=== PATIENT | female | born 1950 | race Caucasian/White ===

== ENCOUNTER 2025-04-24 08:57 | Outpatient (OUT) | payer MEDICARE, SELFPAY ==
--- OUTSIDE RECORDS SUMMARY | 2025-04-18 14:30 | XMS_ITS | Encounter Summary ---
Author Organization [facility] Address [address] [place] [address] Care Team Providers Care Belt Dresser Name Role Phone Bennie Oden MD Primary Care Provider [phone] Mateo Rendon DO Unavailable [phone] Reason for Visit * Rehabilitation - Outpatient (Routine) - Authorized Specialty Diagnoses / Procedures Referred By Contac t Referred To Contact Physical Therapy Diagnoses Dorsalgia, unspecified Low back pain, unspecified Scoliosis, unspecified Procedures IA MANUAL THERAPY TQS REGIONS EACH 15 MINUTES Bennie Oden MD [address] [place] [address] [place] [address] Phone: tel: fax: Bennie Dc, PT [address] [place] [address] Phone: tel: fax: Referral ID Status Reason Start Date Expiration Date Visits Requested Visits Authorized [id number] Authorized Consult and Treat 04/01/2025 05/13/2025 6 6 Encounter Details Date Type Department Care Team (Late st Contact Info) Description 04/18/2025 2:30 PM EDT Treatment [facility] [address] [place] [address] Bennie Dc, PT [address] [place] [address] Lumbar paraspinal muscle spasm (Primary Dx); Lumbar radiculopathy; Scoliosis of thoracolumbar spine, unspecified scoliosis type Social History Tobacco Use Types Packs/Day Years Used Date Smoking Tobacco: Never Smokeless Tobacco: Never Comments Unknown Sex and Gender Information Value Date Recorded Sex Assigned at Not on file Legal Sex Female 7:07 PM EDT Gender Identity Not on file Sexual Orientation Not on file documented as of this encounter Progress Notes * Bennie Dc, PT - 04/18/2025 2:30 PM EDT Images from the original note were not included. Physical Therapy Physical Therapy Treatment Visit Patient Name: Roseann Cadena Today's Date: 04/18/25 Encounter Diagnoses Name Primary? Lumbar paraspinal muscle spasm Yes Lumbar radiculopathy Scoliosis of thoracolumbar spine, unspecified scoliosis type Time In: 2:30 pm Time out: 3:30 pm Supervised Time: 40 Min Total Time: 60 Min Visit Number: 2 (1/6 visits approved 04/01/2025 thru 05/13/2025 Auth # [id number] ) Chief Complaint: Frequent and progressive exacerbations of thoracolumbar pain with intermittent episodes of bilateral LE radiculopathy with underlying thoracolumbar scoliosis and lumbar DDD/DJD/Stenosis Precautions: As tolerated Subjective History: 74 yo female presents per referral of PCP Bennie Oden MD for evaluation and treatment of lumbar radiculopathy, paraspinal spasm, and scoliosis. Reports long history of intermittent lumbar pain that is becoming more difficult to independently manage. Multiple prior episodes of PT that are generally intermittent rather than sustained episodes that have assisted patient to maintain goodindependent management of this condition over the last 1-2 years. Intermittent utilization of procedural pain management in the past to assist with management. Patient is highly compliant with home exercises daily which has greatly assisted in management of this condition. Patient voices that she would like to utilize PT PRN for management of exacerbations that cannot be controlled with HEP. Reports 2-weeks of increased back pain including thoracolumbar spasm, intermittent radiculopathy with underlying thoracolumbar scoliosis leads to this PT consult (03/31/25-DBO) Pain: Reports pain was significantly improved for 7-10 days post last session and that symptoms arenow exacerbated at mid to lower cervical spine and upper trap distribution up to 5-6/10 leading to today's PT consult Objective: Examination performed on 03/31/25-DBO The patient presents with subacute lumbar pain with spasm and bilateral LE radiculopathy affecting both lower legs described as intermittent burning worse during extended static standing and walking.Static standing/walking tolerance is 10-15 minutes prior to onset and progression of pain that requires sitting or laying to improve. Patient remains diligent with daily home exercises but is not getting the relief of pain she has leading to this PT referral. Patient's LE assessment demonstrates mild hip/lumbar spine flexion with gait. Lumbar flexion 65 degrees, lumbar extension 15 degrees, side-bending 25 degrees. Hip extension was 10 degrees. 90/90 HS length test demonstrated moderate trunk and LE flexibility deficit at -25 degrees from full knee extension indicative of moderate trunk and LE flexibility deficit. There was moderate increased paraspinal tone through the thoracolumbar and lumbosacral spine. Positive PA testing with reproduction of familiar lumbar spine pain. Negative SLUMP/SLR examination with normal dermatome and myotome testing. The patient had increased pain with extended static standing and walking with minimal pain with sitting and lying consistent with lumbar stenosis condition. Demonstrates mild to moderate prominence on the right with forward bend test from T10 to L4. The patient's Back Index scored 48 indicative of moderate functional impairment consistent with PT examination findings (03/31/25-DBO) Therapy Diagnosis: The patient's primary functional limitation is associated with changing and maintaining body position with regard to the lumbar spine with moderate impairment via Back Index consistent with PT examination findings Functional Limitations: Moderate LBP, spasm, and lumbar LE radiculopathy. Moderate decreased tolerance to ADL, household management, work, sleep, and recreation Prior Level of Function ADLs: Independent Recreation: Active Employment: Retired INTERVENTIONS Manual: Grade I/II cervical and lumbar PA, mobilization, Sidelying grade II gapping mobilization, STM for improvement of tissue tone and pain (20 Min) Therapeutic Exercise: Per Exercise Grid found in patient documents including lumbar flexion-based flexibility, core strength, ergonomic, and postural program to assist varnish melter helper management (10 Minutes including cueing for optimal exercise) Therapeutic Activity: Exercises to improve dynamic activities, functional tasks, functional mobility to return to prior activity level (PRN) Neuromuscular Re-education: Neuromuscular reeducation including muscle facilitation, ergonomic and postural training, core strengthening (10-Including supine and side-lying MET 10 second hold and relax program 3-5 repetitions in standard lumbar spinal distribution) Modalities: Electrical Stimulation/Ice prone over 2-3 pillows post session IFC High/Low Sweep for inflammation and pain control (20 Min); UltraSound-1 MHz 1.5 w/cm2 at L4-S1 disc interspaces (PRN); Mechanical lumbar traction for decompression (PRN) Goals: Short Term Goals: To be met by 07/02/25 The patient to demonstrate 50% reduction in pain/radiculopathy in 6 weeks and 75% reduction in painin 12 weeks The patient to achieve 90/90 HS length testing of <15 degrees from full knee extension as demonstration of improvement in trunk and LE flexibility with core and LE strength improvements to 4+/5 in8-12 weeks The patient to score <20% residual functional impairment via Back Index f/u difficulty questionnaire in 8-12 weeks The patient to demonstrate good compliance to ergonomic and postural recommendations and have prophylactic management plan in place including routine home management via flexibility and strength exercises to reduce risk of future exacerbations to be met by conclusion of PT expected in 8-12 weeks Rehab Potential: Good PT Assessment: The patient has participated in 2 outpatient PT sessions since start of care on 03/31/25 for lumbarparaspinal spasm, lumbar radiculopathy, and thoracolumbar scoliosis per referral of Bennie Oden DO. Reports pain was significantly improved for 7-10 days post last session and that symptoms are now exacerbated at mid to lower cervical spine and upper trap distribution up to 5-6/10 leading to today's PT consult Patient previously utilized over the counter oral medication, prescription medication, had consult with primary care provider, pain management specialists including participation in procedural pain management, and has met with certified surgical technologist that indicated that surgery for lumbar spine is not indicated at this time. Physical therapy has in the past and continues to be medically appropriate and necessary to manage this patient's underlying degenerative spinal changes and rotator cuff pathology. The patient is highly compliant with all PT and home management recommendations and often only requires PT intermittently to manage exacerbations. Previous PT episodes have been denied stating that treatment was not deemed medically necessary or indicated that the patient could utilize other means to manage pain exacerbations such as massage therapy, etc... Outpatient PT to manage exacerbations of this patient's thoracolumbar and scoliosis conditions are a medically appropriate and necessary treatment approach. In summary, Physical Therapy, is medically necessary and reasonable to treat Geri Cadena's thoracolumbar spine and scoliosis conditions and I ask that [facility] cover an extended episode of PT including 8 visits over 12 weeks to best manage this patient's physical therapy needs. Plan: Recommend outpatient PT 8 visits over 12 weeks per above PT POC pending patient progress and medical necessity standards (03/31/25-DBO) I hereby deem this POC medically necessary. Please sign below and fax back to the number below. Physician Signature: Date: documented in this encounter Plan of Treatment Upcoming Encounters Date Type Department Care Team (Late st Contact Info) Description 05/01/2025 11:45 AM EDT Treatment [facility] [address] [facility] [address] Bennie Dc, PT [address] [facility] [place] [address] 07/22/2025 10:15 AM EST Office Visit [facility] [address] [place] [address] Elaine Ernandez DO [address] [place] [address] 01/06/2026 3:50 PM EDT Office Visit [facility] [address] [place] [address] Ronda Juarez MD [address] [place] [address] documented as of this encounter Visit Diagnoses Diagnosis Lumbar paraspinal muscle spasm- Primary Other symptoms referable to back Lumbar radiculopathy Thoracic or lumbosacral neuritis or radiculitis, unspecified Scoliosis of thoracolumbar spine, unspecified scoliosis type documented in this encounter Care Teams Belt Dresser Relationship Specialty Start Date End Date Bennie Oden MD PCP - General Family Medicine 02/21/23 Mateo Rendon DO [address] [place] [address] Otolaryngology 07/31/24 documented as of this encounter
--- NOTE | 2025-04-24 | XR_ITS ---
[facility] [place] [id number] Patient Name: CHANDLER FRANK MRN: [id number] date: 1950 Sex: F Assigned Patient Location: [facility] Current Patient Location: [facility] Accession/Order Number: [id number] Exam Date: 04/24/2025 09:26 Report Date: 04/24/2025 09:28 At the request of: DENNIS SCHULTZ DO Procedure: XR shoulder RT min 2V RIGHT SHOULDER - 3 views CLINICAL HISTORY: M25.511 right shoulder pain radiating down the arm for the past 3 weeks after golfing COMPARISON: None AP, Y, axillary and Grashey views were obtained. There is no evidence of fracture or dislocation. There is minimal spurring at the acromioclavicular joint and sclerosis of greater tuberosity. There are no significant soft tissue abnormalities. XR/XR shoulder RT min 2V IMPRESSION: NO ACUTE BONY FINDINGS. Impression dictated by: Mulu No M.D. 04/24/2025 9:28 AM Dictation Location: [facility] Electronically authenticated by: [id number] Y Date: 04/24/2025 09:28
--- OUTSIDE RECORDS SUMMARY | 2025-04-24 09:00 | XMS_ITS | Encounter Summary ---
Author Organization [facility] Address [address] [place] [address] Care Team Providers Care Cellars Supervisor Name Role Phone Bennie Oden MD Primary Care Provider [phone] Mateo Rendon DO Unavailable [phone] Encounter Details Date Type Department Care Team (Latest Contact Info) Description 04/18/2025 Travel Social History Tobacco Use Types Packs/Day Years Used Date Smoking Tobacco: Never Smokeless Tobacco: Never Comments Unknown Sex and Gender Information Value Date Recorded Sex Assigned at Not on file Legal Sex Female 7:07 PM EDT Gender Identity Not on file Sexual Orientation Not on file documented as of this encounter Plan of Treatment Upcoming Encounters Date Type Department Care Team (Late st Contact Info) Description 05/01/2025 11:45 AM EDT Treatment [facility] [address] [place] [address] Bennie Dc, PT [address] [place] [address] 07/22/2025 10:15 AM EST Office Visit [facility] [address] [place] [address] Elaine Ernandez DO [address] [place] [address] 01/06/2026 3:50 PM EDT Office Visit [facility] [address] [place] [address] Ronda Juarez MD [address] [place] [address] documented as of this encounter Visit Diagnoses Not on filedocumented in this encounter Care Teams Cellars Supervisor Relationship Specialty Start Date End Date Bennie Oden MD PCP - General Family Medicine 02/21/23 Mateo Rendon DO [address] [place] [address] Otolaryngology 07/31/24 documented as of this encounter
--- OUTSIDE RECORDS SUMMARY | 2025-04-24 09:00 | XMS_ITS | Encounter Summary ---
Author Organization [facility] Address [address] [place] [address] Phone Care Team Providers Care Cns Name Role Phone Bennie Oden DO Primary Care Provider [phone] Encounter Details Date Type Department Care Team (Late st Contact Info) Description 04/12/2021 Orders Only [facility] [address] [place] [address] Conversion, Onbase Social History Tobacco Use Types Packs/Day Years Used Date Smoking Tobacco: Never Assessed Comments Unknown Sex and Gender Information Value Date Recorded Sex Assigned at Not on file Legal Sex Female 11:13 PM EST Gender Identity Not on file Sexual Orientation Not on file documented as of this encounter Plan of Treatment Scheduled Orders Name Type Priority Associated Diagnoses Orde r Schedule OUTSIDE LAB SCAN Lab Ordered: 04/12/2021 documented as of this encounter Visit Diagnoses Not on filedocumented in this encounter Care Teams Cns Relationship Specialty Start Date End Date Bennie Oden DO PCP - General 09/18/20 documented as of this encounter
--- OUTSIDE RECORDS SUMMARY | 2025-04-24 09:00 | XMS_ITS | Clinical Summary ---
Author Organization [facility] Address [address] [place] [address] Care Team Providers Care Management Retail Intern Name Role Phone Bennie Oden MD Primary Care Provider [phone] Mateo Rendon DO Unavailable [phone] Allergies Active Allergy Reactions Criticality Noted Date Comments Amoxicillin 12/13/2023 Other Reaction(s): Itching, itchy Ciprofloxacin 01/02/2024 Oxaprozin 01/02/2024 Medications thyroid ([place]) 15 MG tablet Take 15 mg by mouth Daily Active MISC NATURAL PRODUCTS IJ Inject as directed Buderer Active Cyanocobalamin 1000 MCG capsule .COMPLEX 12/13/2023 Active meclizine (Antivert) 12.5 MG tablet Three times daily 12/13/2023 Active clotrimazole (Mycelex) 10 MG michelle 05/01/2024 Active Echinacea 125 MG tablet Daily 06/17/2024 Active fluticasone (Flonase) 50 MCG/ACT nasal spray Daily 12/13/2023 Active Estrogens Conjugated (Premarin) 0.625 MG/GM cream Vaginal through buderer drugs Active Dentifrices (BIOTENE DRY MOUTH DT) Apply to teeth Active NATTOKINASE PO Take by mouth A ctive Active Problems Problem Noted Date Diagnosed Date Cervical paraspinal muscle spasm 02/21/2023 Radiculopathy, cervical 02/21/2023 Resolved Problems Problem Noted Date Diagnosed Date Resolved Date Atrophic vaginitis 07/29/2024 Elevated blood pressure reading 07/29/2024 07/29/2024 Fibrocystic breast changes 07/29/2024 1 09/28/2023 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 07/29/20 24 Hoarseness of voice 07/29/2024 07/29/20 24 Hyperglycemia 07/29/2024 07/29/2024 Hyperlipidemia 07/29/2024 07/29/2024 Macrocytosis 07/29/2024 07/29/2024 Palpitations 07/29/2024 07/29/2024 Premature atrial contractions 07/29/2024 07/29/2024 Screening for colorectal cancer 07/29/2024 07/29/2024 Other specified abnormal fin dings of blood chemistry 07/29/2024 07/29/2024 Status post hysterectomy 07/29/202407/2024 Tension headache 07/29/2024 07/29/2024 Trigger finger 07/29/2024 07/29/2024 Weight loss 07/29/2024 07/29/2024 Thrush 07/29/2024 07/29/2024 Abdominal pain 08/26/2008 07/29/2024 Encounters Date Type Department Care Team Description 04/18/2025 2:30 PM EDT Treatment [facility] [address] [place] [address] Bennie Dc, PT Lumbar paraspinal muscle spasm (Primary Dx); Lumbar radiculopathy; Scoliosis of thoracolumbar spine, unspecified scoliosis type 04/18/2025 Bamboo flowsheet [facility] [address] [facility] [place] [address] Bennie Dc, PT 04/18/2025 Travel 03/31/2025 11:00 AM EDT Treatment [facility] [address] [place] [address] Bennie Dc, PT Lumbar paraspinal muscle spasm (Primary Dx); Lumbar radiculopathy; Scoliosis of thoracolumbar spine, unspecified scoliosis type 03/31/2025 Bamboo flowsheet [facility] [address] [facility] [facility] [place] [address] Bennie Dc, PT 03/31/2025 Travel 03/05/2025 Results Follow-Up [facility] [address] [place] [phone] Elaine Ernandez DO 03/03/2025 11:30 AM EDT Ancillary Procedure [facility] [address] [place] [address] Encounter for screening for osteoporosis 03/03/2025 Travel 02/13/2025 12:[address] [facility] [address] [place] [address] Bennie Dc, PT Lumbosacral radiculopathy (Primary Dx); Other idiopathic scoliosis, lumbosacral region; Lumbar paraspinal muscle spasm 02/13/[address] [facility] [address] [place] [address] Bennie Dc, PT 02/13/2025 Travel 02/03/2025 1:30 PM EDT Ancillary Procedure [facility] [address] [place] [address] Encounter for screening mammogram for malignant neoplasm of breast 02/03/2025 Travel 01/24/2025 12:45 PM EDT Treatment [facility] [address] [place] [address] Bennie Dc, PT Lumbosacral radiculopathy (Primary Dx); Other idiopathic scoliosis, lumbosacral region; Lumbar paraspinal muscle spasm 01/24/[address] [facility] [address] [place] [address] Bennie Dc, PT 01/24/2025 Travel from Last 3 Months Social History Tobacco Use Types Packs/Day Years Used Date Smoking Tobacco: Never Smokeless Tobacco: Never Tobacco Cessation:Counseling Given: Not Answered Comments Unknown Sex and Gender Information Value Date Recorded Sex Assigned at Not on file Legal Sex Female 7:07 PM EDT Gender Identity Not on file Sexual Orientation Not on file Last Filed Vital Signs Vital Sign Reading Time Taken Comments Blood Pressure 124/80 05/22/2024 3:00 PM EDT Pulse 83 05/22/2024 3:00 PM EDT Temperature 36.1 C (97 F) 05/22/2024 3:00 PM EDT Respiratory Rate - - Oxygen Saturation 97% 05/22/2024 3:00 PM EDT Inhaled Oxygen Concentration - - Weight 53.1 kg (117 lb) 07/31/2024 1:51 PM EST Height 153.7 cm (5' 0.5 ) 07/31/2024 1:51 PM EST Body Mass Index 22.47 07/31/2024 1:51 PM EST Plan of Treatment Upcoming Encounters Date Type Department Care Team (Late st Contact Info) Description 05/01/2025 11:45 AM EDT Treatment [facility] [address] [place] [address] Bennie Dc, PT [address] [place] [address] 07/22/2025 10:15 AM EST Office Visit [facility] [place] [facility] [address] [place] [address] Elaine Ernandez DO [address] [place], [place] [id number] 01/06/2026 3:50 PM EDT Office Visit [facility] [place] [facility] [address] [place] [address] Ronda Juarez MD [address] [place], [place] [id number] Procedures Procedure Name Priority Date/Time Associated Diagnosis Comments DEXA BONE DENSITY Routine 03/03/2025 11: 50 AM EDT Encounter for screening for osteoporosis BI MAMMOGRAM SCREENING TOMOSYNTHESIS BILATERAL Routine 02/03/2025 1:52 PM EDT Encounter for screening mammogram for malignant neoplasm of breast from Last 3 Months Results * DEXA bone density (03/03/2025 11:50 AM EDT) Anatomical Region Laterality Modality Body Digital Radiogra phy 03/03/2025 1:03 PM EDT Impressions 03/03/2025 1:05 PM EDT Impression: Findings compatible with moderate osteopenia with moderate increased fracture risk. Findings are similar to the prior exam. ELECTRONICALLY SIGNED BY: Jeremy Meraz M.D. Narrative 03/03/2025 1:05 PM EDT Examination: DEXA BONE DENSITY Clinical History: screening Technique: Bone density study was performed. T score values for the lumbar spine, right femoral neck and left femoral neck were obtained. Comparison: 12/12/2022. Findings: Value for the lumbar spine from L1-L4 is -0.4. Value for the right femoral neck is -1.8. Value for the left femoral neck is -1.8. Findings are compatible with moderate osteopenia with moderate increased fracture risk. No evidence of osteoporosis. Study was compared to the prior exam dated 12/12/2022 which demonstrates similar findings. Procedure Note Jeremy Meraz MD - 03/03/2025 Examination: DEXA BONE DENSITY Clinical History: screening Technique: Bone density study was performed. T score values for the lumbarspine, right femoral neck and left femoral neck were obtained. Comparison: 12/12/2022. Findings: Value for the lumbar spine from L1-L4 is -0.4. Value for theright femoral neck is -1.8. Value for the left femoral neck is -1.8.Findings are compatible with moderate osteopenia with moderate increasedfracture risk. No evidence of osteoporosis. Study was compared to theprior exam dated 12/12/2022 which demonstrates similar findings. IMPRESSION: Impression: Findings compatible with moderate osteopenia with moderateincreased fracture risk. Findings are similar to the prior exam. ELECTRONICALLY SIGNED BY: Jeremy Meraz M.D. Elaine Ernandez DO IMG DXA PROCEDURES Final Re sult * Bilateral screening mammogram with tomosynthesis (02/03/2025 1:52 PM EDT) Anatomical Region Laterality Modality Breast Bilateral Mammography 02/03/2025 2:04 PM EDT Impressions 02/03/2025 2:10 PM EDT Impression: No specific evidence of malignancy seen in either breast. BIRADS 2 - Benign Findings DENSITY: The breasts are heterogeneously dense, which may obscure small masses. FOLLOW-UP: Routine Screening Mammogram ELECTRONICALLY SIGNED BY: Jeremy Meraz M.D. Narrative 02/03/2025 2:10 PM EDT Examination: BI MAMMOGRAM SCREENING TOMOSYNTHESIS BILATERAL Clinical History: screening Technique: Screening digital mammography study of both breasts was performed with 2-D and 3-D tomosynthesis imaging. Study was compared to the prior exam dated 12/27/2023. Findings: There is no evidence of interval dominant spiculated mass, grouped microcalcifications, or skin thickening which would be suggestive of malignancy. Axillary lymph nodes including partially visualized nodes noted on the left which appear grossly unremarkable. There may be axillary lymph nodes including partially visualized lymph nodes on the right which appear grossly unremarkable. Procedure Note Jeremy Meraz MD - 02/03/2025 Examination: BI MAMMOGRAM SCREENING TOMOSYNTHESIS BILATERAL Clinical History: screening Technique: Screening digital mammography study of both breasts wasperformed with 2-D and 3-D tomosynthesis imaging. Study was compared tothe prior exam dated 12/27/2023. Findings: There is no evidence of interval dominant spiculated mass,grouped microcalcifications, or skin thickening which would be suggestiveof malignancy. Axillary lymph nodes including partially visualized nodes noted on theleft which appear grossly unremarkable. There may be axillary lymph nodesincluding partially visualized lymph nodes on the right which appeargrossly unremarkable. IMPRESSION: Impression: No specific evidence of malignancy seen in either breast. BIRADS 2 - Benign Findings DENSITY: The breasts are heterogeneously dense, which may obscure smallmasses. FOLLOW-UP: Routine Screening Mammogram ELECTRONICALLY SIGNED BY: Jeremy Meraz M.D. Elaine Ernandez DO IMG BI PROCEDURES Final Res ult from Last 3 Months Insurance [employer] MEDICARE Care Teams Management Retail Intern Relationship Specialty Start Date End Date Bennie Oden MD PCP - General Family Medicine 02/21/23 Mateo Rendon DO [address] [place] [address] Otolaryngology 07/31/24
--- OUTSIDE RECORDS SUMMARY | 2025-04-24 09:00 | XMS_ITS | Encounter Summary ---
Author Organization [facility] Address [address] [place] [address] Care Team Providers Care Survey Statistician Name Role Phone Bennie Oden MD Primary Care Provider [phone] Mateo Rendon DO Unavailable [phone] Encounter Details Date Type Department Care Team (Late st Contact Info) Description 04/18/2025 Bamboo flowsheet [facility] [address] [place] [phone] Bennie Dc, PT [address] [place] [address] Social History Tobacco Use Types Packs/Day Years [...] EDT Treatment [facility] [address] [facility] [place] [address] Bennie Dc, PT [address] [place] [address] 07/22/2025 10:15 AM EST [facility] [address] [facility] [address] [place] [address] Elaine Ernandez DO [address] [place] [address] 01/06/2026 3:50 PM EDT Office Visit [facility] [place] [facility] [address] [place] [address] Ronda Juarez MD [address] [place] [address] documented as of this encounter Visit Diagnoses Not on filedocumented in this encounter Care Teams Survey Statistician Relationship Specialty Start Date End Date Bennie Oden MD PCP - General Family Medicine 02/21/23 Mateo Rendon DO [address] [place] [address] Otolaryngology 07/31/24 documented as of this encounter
--- OUTSIDE RECORDS SUMMARY | 2025-04-24 09:00 | XMS_ITS | Encounter Summary ---
Author Organization [facility] Address [address] [place] [address] Phone Care Team Providers Care Process Cheese Cooker Name Role Phone Bennie Oden DO Primary Care Provider [phone] Encounter Details Date Type Department Care Team (Late st Contact Info) Description 03/11/2021 Orders Only [facility] [address] [place] [address] Conversion, Onbase Social History Tobacco Use Types [...] r Schedule OUTSIDE LAB SCAN Lab Ordered: 03/11/2021 OUTSIDE LAB SCAN Lab Ordered: 03/11/2021 documented as of this encounter Visit Diagnoses Not on filedocumented in this encounter Care Teams Process Cheese Cooker Relationship Specialty Start Date End Date Bennie Oden DO PCP - General 09/18/20 documented as of this encounter
--- OUTSIDE RECORDS SUMMARY | 2025-04-24 09:00 | XMS_ITS | Clinical Summary ---
Author Organization [facility] Address [address] [place] [address] Care Team Providers Care Casing Cleaner Name Role Phone Bennie Oden DO Primary Care Provider [phone] Allergies Active Allergy Reactions Criticality Noted Date Comments Oxaprozin Hives 05/16/2013 Medications PREMARIN vaginal cream 03/17/2013 Active Social History Tobacco Use Types Packs/Day Years Used Date Smoking Tobacco: Never Assessed Comments Unknown Sex and Gender Information Value Date Recorded Sex Assigned at Not on file Legal Sex Female 12:46 PM EDT Gender Identity Not on file Sexual Orientation Not on file Plan of Treatment Health Maintenance Due Date Last Done Comments Anxiety Screening 1968 Depression Screening 1968 Hepatitis C Screening 1968 DTaP,Tdap,Td Vaccine (1 - Tdap) [address] Colonography 12/06/1995 Cologuard (FIT-DNA) 12/06/1995 Colonoscopy 12/06/1995 Colorectal Cancer Screening 12/06/1995 Diabetes Screening 12/06/1995 Fecal Occult Blood 12/06/1995 Lipid Screening 12/06/1995 Sigmoidoscopy 12/06/1995 Pneumococcal Vaccine: 50+ (1 of 1 - PCV) 2000 Shingrix Vaccine (1 of 2) 2000 Bone Density Screening 12/06/2015 Advance Directive Discussion 09/18/2024 Influenza Vaccine (#1) 2025 RSV Vaccine (1 - 1-dose 75+ series) 2025 Insurance BLUE CARD PPO OOS Member Subscriber Plan / Payer (Ef fective 2012-Present) Name:Roseann Cadena Relation to Subscriber:Spouse Name:YENNIFER CADENA Date of :1947 (Home) Address: [address] [place] [address] Payer ID:[id number] (NAIC) Type:PPO Address: [facility] [id number] [place] [id number] Care Teams Casing Cleaner Relationship Specialty Start Date End Date Bennie Oden DO [address] [place] [address] PCP - General Family Medicine 04/04/13
--- OUTSIDE RECORDS SUMMARY | 2025-04-24 09:00 | XMS_ITS | Encounter Summary ---
Author Organization [facility] Address [address] [place] [address] Phone Care Team Providers Care Jazz Singer Name Role Phone Bennie Oden DO Primary Care Provider [phone] Encounter Details Date Type Department Care Team (Late st Contact Info) Description 05/17/2021 Orders Only [facility] [address] [place] [address] Conversion, Onbase Social History Tobacco Use Types [...] r Schedule OUTSIDE LAB SCAN Lab Ordered: 05/17/2021 documented as of this encounter Visit Diagnoses Not on filedocumented in this encounter Care Teams Jazz Singer Relationship Specialty Start Date End Date Bennie Oden DO PCP - General 09/18/20 documented as of this encounter
== END 2025-04-24 08:58 | disposition home or self-care (01) ==
LOC: RAD 08:58
PROVIDERS: PCP Family Medicine; Visit Provider Physician Assistant
DX: M25.511 Pain in right shoulder (principal)
CPT/HCPCS: 73030